=== PATIENT | male | born 1995 | race Caucasian/White ===

== ENCOUNTER 2018-06-14 23:01 | Emergency (ER) | payer SELFPAY ==
[2018-06-14] MEDS ORDERED: Sodium Chloride 0.9% 10 ML Syringe FLUSH PRN (23:18)
[2018-06-14] MEDS ORDERED: Metoclopramide 10 MG/2 ML SDV IVPUSH ONE (23:18)
[2018-06-14] MEDS ORDERED: Famotidine 20 MG Tab PO ONE (23:18)
[2018-06-14] MEDS ORDERED: Famotidine 20 MG/2 ML SDV IVPUSH ONE ×2 (23:24)
--- NOTE | 2018-06-14 23:25 | EDM.PDOC ---
ED HPI GENERAL MEDICAL PROBLEM - General Chief Complaint: Neurological Problem Stated Complaint: [facility] Time Seen by Provider: 06/14/18 23:08 Source of Information: Reports: Patient, EMS, Family (Mother and girlfriend), RN Notes Reviewed - History of Present Illness INITIAL COMMENTS - FREE TEXT/NARRATIVE: 23-year-old male has been brought in by [facility] after having suffered apparent seizure. History is fairly limited at time of my exam. His mother is present but he apparently has been living with his girlfriend at a different residence. He gone to the bathroom, nauseated, may have vomited and that is reported to a passed out but also to of had some brief generalized seizure activity. Ambulance was called. Upon their arrival he was drowsy, nauseated, transported here without further incident. He was noted to have quite a few abrasions to his back. He was starting to wake up at time of my exam , has mid and lower back discomfort. He states he also has headache. He still feels nauseated. He does not remember at all what happened. No chest pain or difficulty breathing at this time. - Related Data Allergies Allergy/AdvReac Type Severity Reaction Status Date / Time CATS Allergy Difficulty Uncoded 06/14/18 23:17 Breathing Home Meds: Home Meds Ondansetron [Zofran ODT] 4 mg PO Q8HR PRN #7 tab.dis 06/15/18 [Rx] Past Medical History Gastrointestinal History: Reports: Other (See Below) Other Gastrointestinal History: ULCERATIVE COLITIS - Past Surgical History GI Surgical History: Reports: Colonoscopy ED ROS GENERAL - Review of Systems Review Of Systems: See Below Constitutional: Denies: Fever HEENT: Denies: Throat Pain Respiratory: Denies: Shortness of Breath Cardiovascular: Denies: Chest Pain GI/Abdominal: Reports: Abdominal Pain, Nausea, Vomiting Musculoskeletal: Reports: Back Pain Skin: Reports: Other (He has abrasions to his mid and low back) Neurological: Reports: Headache, Weakness (Generalized). Denies: Trouble Speaking ED EXAM, NEURO - Physical Exam Exam: See Below General Appearance: Other (Patient is drowsy but arousable, he is answering simple questions appropriately. He seems surprised to be here in the ED. As noted he does not remember what happened.) Ears: Normal External Exam Nose: Normal Inspection Throat/Mouth: Other (Oral mucosa is moist, is have a small abrasion right dorsal aspect of tongue, no active bleeding) Head Exam: Atraumatic. No: Facial Swelling Neck: Supple. No: Tender Midline Respiratory/Chest: No Respiratory Distress, Lungs Clear. No: Rhonchi, Wheezing Cardiovascular: Regular Rate, Rhythm GI/Abdominal: Soft, Tender. No: Guarding, Rebound (Mild tenderness upper mid abdomen, lower abdomen soft and nontender) Neurological: Other (Moderately drowsy, he does awaken, makes eye contact, answering simple questions appropriately) Back Exam: Other (He does have multiple abrasions of the mid and lower back). No: CVA Tenderness (L), CVA Tenderness (R), Paraspinal Tenderness, Vertebral Tenderness Extremities: Normal Inspection, Normal Range of Motion Skin Exam: Warm, Dry, Pallor ED NEURO PROCEDURES - Lumbar Puncture Indication: Headache, Mental Status Change Consent Obtained: Other (girlfriend) Position: Lateral Decubitus Prep: Sterile Drapes, Betadine, Chlorhexidine Local Anesthesia - Lidocaine (Xylocaine): 1% Plain Local Anesthetic Volume: 2cc Vertebral Interspace: L3/L4 Spinal Needle With Stylet: 22ga, 3.5 Inch (Adult) Number of Attempts: 1 Fluid Appearance: Clear Tubes Obtained: 4 Total Fluid Amount: Other (about 6 cc) Complications: No Sterile Dressing: Adhesive Dressing Course - Vital Signs Last Recorded V/S: Last Vital Signs Temp 96.8 F 06/14/18 23:05 Pulse 100 06/15/18 08:50 Resp 18 06/15/18 08:50 BP 125/49 L 06/15/18 08:50 Pulse Ox 97 06/15/18 08:50 - Orders/Labs/Meds Orders: Active Orders 24 hr Category Date Time Status Peripheral IV Care [RC] . DIRECTED Care 06/14/18 23:19 Active CULTURE CSF + SMEAR [RM] Stat Lab 06/15/18 01:58 Results Peripheral IV Insertion Adult [OM.PC] Stat Oth 06/14/18 23:18 Ordered Labs: Laboratory Tests 06/14/18 06/14/18 06/15/18 Range/Units 23:45 23:45 01:58 WBC 22.85 H (4.23-9.07) K/mm3 RBC 4.85 (4.63-6.08) M/mm3 Hgb 13.7 (13.7-17.5) gm/L Hct 43.2 (40.1-51.0) % MCV 89.1 (79.0-92.2) fl MCH 28.2 (25.7-32.2) pg MCHC 31.7 L (32.2-35.5) g/dl RDW Std Deviation 41.7 (35.1-43.9) fL Plt Count 373 H (163-337) K/mm3 MPV 9.9 (9.4-12.3) fl Neut % (Auto) 89.5 H (34.0-67.9) % Lymph % (Auto) 5.5 L (21.8-53.1) % [place] % (Auto) 2.7 L (5.3-12.2) % Eos % (Auto) 1.4 (0.8-7.0) Baso % (Auto) 0.2 (0.1-1.2) % Neut # (Auto) 20.44 H (1.78-5.38) K/mm3 Lymph # (Auto) 1.26 L (1.32-3.57) K/mm3 [place] # (Auto) 0.62 (0.30-0.82) K/mm3 Eos # (Auto) 0.33 (0.04-0.54) K/mm3 Baso # (Auto) 0.04 (0.01-0.08) K/mm3 Manual Slide Review Abnormal smear Sodium 136 (136-145) mEq/L Potassium 4.5 (3.5-5.1) mEq/L Chloride 101 (98-107) mEq/L Carbon Dioxide 20 L (21-32) mEq/L Anion Gap 19.5 H (5-15) BUN 10 (7-18) mg/dL Creatinine 1.2 (0.7-1.3) mg/dL Est Cr Clr Drug Dosing 71.24 mL/min Estimated GFR (MDRD) > 60 (>60) mL/min BUN/Creatinine Ratio 8.3 L (14-18) Glucose 211 H (74-106) mg/dL Calcium 9.2 (8.5-10.1) mg/dL Total Bilirubin 0.8 (0.2-1.0) mg/dL AST 20 (15-37) U/L ALT 22 (16-63) U/L Alkaline Phosphatase 100 (46-116) U/L Total Protein 8.3 H (6.4-8.2) g/dl Albumin 3.9 (3.4-5.0) g/dl Globulin 4.4 gm/dL Albumin/Globulin Ratio 0.9 L (1-2) Urine Color (Yellow) Urine Appearance (Clear) Urine pH (5.0-8.0) Ur Specific [place] (1.005-1.030) Urine Protein (Negative) Urine Glucose (UA) (Negative) Urine Ketones (Negative) Urine Occult Blood (Negative) Urine Nitrite (Negative) Urine Bilirubin (Negative) Urine Urobilinogen (0.2-1.0) Ur Leukocyte Esterase (Negative) Urine RBC (0-5) /hpf Urine WBC (0-5) /hpf Ur Epithelial Cells (0-5) /hpf Urine Bacteria (FEW) /hpf Urine Mucus (FEW) /hpf CSF Volume (2) ml CSF Color (2) CSF Supernat Color (2) CSF Appearance (2) (CLEAR) CSF WBC (2) (0.000-0.008) 10*3/uL CSF RBC (2) (0-0.010) /mm*3 CSF Neutrophils (2) (0-5) CSF Lymphocytes (2) (0-8) CSF Other Cells (2) (0-5) CSF Diff Comment (2) CSF Glucose 79.0 H (40-70) mg/dl CSF Total Protein (15-45) mg/dl Urine Opiates Screen (JLNMIA=923) Ur Buprenorphine Scrn (CUTOFF=10) Ur Oxycodone Screen (LTH9HT=630) Urine Methadone Screen (GOT6CX=767) Ur Propoxyphene Screen (MQIGJO=822) Ur Barbiturates Screen (PAPKBP=263) Ur Tricyclics Screen (HQZLYT=595) Ur Phencyclidine Scrn (CUTOFF=25) Ur Amphetamine Screen (LLADQI=849) U Methamphetamines Scrn (DCIMMS=821) U Benzodiazepines Scrn (RUGEPX=867) U Cocaine Metab Screen (ZVKEJU=767) U Marijuana (THC) Screen (CUTOFF=50) 06/15/18 06/15/18 06/15/18 Range/Units 01:58 01:58 05:58 WBC (4.23-9.07) K/mm3 RBC (4.63-6.08) M/mm3 Hgb (13.7-17.5) gm/L Hct (40.1-51.0) % MCV (79.0-92.2) fl MCH (25.7-32.2) pg MCHC (32.2-35.5) g/dl RDW Std Deviation (35.1-43.9) fL Plt Count (163-337) K/mm3 MPV (9.4-12.3) fl Neut % (Auto) (34.0-67.9) % Lymph % (Auto) (21.8-53.1) % [place] % (Auto) (5.3-12.2) % Eos % (Auto) (0.8-7.0) Baso % (Auto) (0.1-1.2) % Neut # (Auto) (1.78-5.38) K/mm3 Lymph # (Auto) (1.32-3.57) K/mm3 [place] # (Auto) (0.30-0.82) K/mm3 Eos # (Auto) (0.04-0.54) K/mm3 Baso # (Auto) (0.01-0.08) K/mm3 Manual Slide Review Sodium (136-145) mEq/L Potassium (3.5-5.1) mEq/L Chloride (98-107) mEq/L Carbon Dioxide (21-32) mEq/L Anion Gap (5-15) BUN (7-18) mg/dL Creatinine (0.7-1.3) mg/dL Est Cr Clr Drug Dosing mL/min Estimated GFR (MDRD) (>60) mL/min BUN/Creatinine Ratio (14-18) Glucose (74-106) mg/dL Calcium (8.5-10.1) mg/dL Total Bilirubin (0.2-1.0) mg/dL AST (15-37) U/L ALT (16-63) U/L Alkaline Phosphatase (46-116) U/L Total Protein (6.4-8.2) g/dl Albumin (3.4-5.0) g/dl Globulin gm/dL Albumin/Globulin Ratio (1-2) Urine Color (Yellow) Urine Appearance (Clear) Urine pH (5.0-8.0) Ur Specific [place] (1.005-1.030) Urine Protein (Negative) Urine Glucose (UA) (Negative) Urine Ketones (Negative) Urine Occult Blood (Negative) Urine Nitrite (Negative) Urine Bilirubin (Negative) Urine Urobilinogen (0.2-1.0) Ur Leukocyte Esterase (Negative) Urine RBC (0-5) /hpf Urine WBC (0-5) /hpf Ur Epithelial Cells (0-5) /hpf Urine Bacteria (FEW) /hpf Urine Mucus (FEW) /hpf CSF Volume (2) 9 ml CSF Color (2) Colorless CSF Supernat Color (2) No xanthochromia CSF Appearance (2) Clear (CLEAR) CSF WBC (2) 0.004 (0.000-0.008) 10*3/uL CSF RBC (2) 66.7 H* (0-0.010) /mm*3 CSF Neutrophils (2) 0.0 (0-5) CSF Lymphocytes (2) 4.0 (0-8) CSF Other Cells (2) 2.0 (0-5) CSF Diff Comment (2) See note CSF Glucose (40-70) mg/dl CSF Total Protein 28.6 (15-45) mg/dl Urine Opiates Screen Negative (PHXEZU=546) Ur Buprenorphine Scrn Negative (CUTOFF=10) Ur Oxycodone Screen Negative (COM3ZL=824) Urine Methadone Screen Negative (BMG8UO=556) Ur Propoxyphene Screen Negative (VWQNUJ=957) Ur Barbiturates Screen Negative (VKOBVE=164) Ur Tricyclics Screen Negative (VPKXYG=720) Ur Phencyclidine Scrn Negative (CUTOFF=25) Ur Amphetamine Screen Negative (PNNHPL=558) U Methamphetamines Scrn Negative (SVVYJP=378) U Benzodiazepines Scrn Negative (VYKGER=622) U Cocaine Metab Screen Negative (RUOAOH=242) U Marijuana (THC) Screen Presumptive positive H (CUTOFF=50) 06/15/18 Range/Units Unknown WBC (4.23-9.07) K/mm3 RBC (4.63-6.08) M/mm3 Hgb (13.7-17.5) gm/L Hct (40.1-51.0) % MCV (79.0-92.2) fl MCH (25.7-32.2) pg MCHC (32.2-35.5) g/dl RDW Std Deviation (35.1-43.9) fL Plt Count (163-337) K/mm3 MPV (9.4-12.3) fl Neut % (Auto) (34.0-67.9) % Lymph % (Auto) (21.8-53.1) % [place] % (Auto) (5.3-12.2) % Eos % (Auto) (0.8-7.0) Baso % (Auto) (0.1-1.2) % Neut # (Auto) (1.78-5.38) K/mm3 Lymph # (Auto) (1.32-3.57) K/mm3 [place] # (Auto) (0.30-0.82) K/mm3 Eos # (Auto) (0.04-0.54) K/mm3 Baso # (Auto) (0.01-0.08) K/mm3 Manual Slide Review Sodium (136-145) mEq/L Potassium (3.5-5.1) mEq/L Chloride (98-107) mEq/L Carbon Dioxide (21-32) mEq/L Anion Gap (5-15) BUN (7-18) mg/dL Creatinine (0.7-1.3) mg/dL Est Cr Clr Drug Dosing mL/min Estimated GFR (MDRD) (>60) mL/min BUN/Creatinine Ratio (14-18) Glucose (74-106) mg/dL Calcium (8.5-10.1) mg/dL Total Bilirubin (0.2-1.0) mg/dL AST (15-37) U/L ALT (16-63) U/L Alkaline Phosphatase (46-116) U/L Total Protein (6.4-8.2) g/dl Albumin (3.4-5.0) g/dl Globulin gm/dL Albumin/Globulin Ratio (1-2) Urine Color Yellow (Yellow) Urine Appearance Clear (Clear) Urine pH 6.0 (5.0-8.0) Ur Specific [place] 1.020 (1.005-1.030) Urine Protein 1+ H (Negative) Urine Glucose (UA) Negative (Negative) Urine Ketones 2+ H (Negative) Urine Occult Blood Trace-intact H (Negative) Urine Nitrite Negative (Negative) Urine Bilirubin Negative (Negative) Urine Urobilinogen 0.2 (0.2-1.0) Ur Leukocyte Esterase Negative (Negative) Urine RBC 0-5 (0-5) /hpf Urine WBC 0-5 (0-5) /hpf Ur Epithelial Cells 0-5 (0-5) /hpf Urine Bacteria Few (FEW) /hpf Urine Mucus Few (FEW) /hpf CSF Volume (2) ml CSF Color (2) CSF Supernat Color (2) CSF Appearance (2) (CLEAR) CSF WBC (2) (0.000-0.008) 10*3/uL CSF RBC (2) (0-0.010) /mm*3 CSF Neutrophils (2) (0-5) CSF Lymphocytes (2) (0-8) CSF Other Cells (2) (0-5) CSF Diff Comment (2) CSF Glucose (40-70) mg/dl CSF Total Protein (15-45) mg/dl Urine Opiates Screen (WZWAZC=008) Ur Buprenorphine Scrn (CUTOFF=10) Ur Oxycodone Screen (UOU3BD=060) Urine Methadone Screen (LZG7PV=881) Ur Propoxyphene Screen (ZGYJAJ=948) Ur Barbiturates Screen (YIZAAM=011) Ur Tricyclics Screen (AIWLCR=228) Ur Phencyclidine Scrn (CUTOFF=25) Ur Amphetamine Screen (PHUCFA=627) U Methamphetamines Scrn (EVCXCQ=118) U Benzodiazepines Scrn (OINYLT=795) U Cocaine Metab Screen (SJWSBS=072) U Marijuana (THC) Screen (CUTOFF=50) Meds: Medications Discontinued Medications Generic Name Dose Route Start Last Admin Trade Name Freq PRN Reason Stop Dose Admin Famotidine 20 mg 06/14/18 23:24 06/14/18 23:25 Pepcid IVPUSH 06/14/18 23:25 Not Given ONETIME ONE Famotidine 20 mg 06/14/18 23:24 06/14/18 23:32 Pepcid IVPUSH 06/14/18 23:25 20 mg ONETIME ONE Administration Haloperidol Lactate 5 mg 06/15/18 07:06 06/15/18 07:17 Haldol IVPUSH 06/15/18 07:07 5 mg ONETIME ONE Administration Hydromorphone HCl 1 mg 06/15/18 07:08 06/15/18 07:20 Dilaudid IVPUSH 06/15/18 07:09 1 mg ONETIME ONE Administration Sodium Chloride 1,000 mls @ 999 mls/hr 06/14/18 23:30 06/14/18 23:33 Normal Saline IV 999 mls/hr ONETIME LUDIVINA Administration Sodium Chloride 1,000 mls @ 999 mls/hr 06/15/18 01:00 06/15/18 01:19 Normal Saline IV 999 mls/hr ONETIME LUDIVINA Administration Ceftriaxone Sodium 2 gm/ 100 mls @ 200 mls/hr 06/15/18 01:40 Sodium Chloride IV 06/15/18 02:09 ONETIME ONE Ceftriaxone Sodium 2 gm/ 100 mls @ 200 mls/hr 06/15/18 02:08 06/15/18 02:14 Sodium Chloride IV 06/15/18 02:37 200 mls/hr ONETIME ONE Administration Sodium Chloride 1,000 mls @ 999 mls/hr 06/15/18 04:30 06/15/18 04:31 Normal Saline IV 999 mls/hr ONETIME LUDIVINA Administration Ketorolac Tromethamine 30 mg 06/14/18 23:45 06/14/18 23:50 Toradol IVPUSH 30 mg ONETIME LUDIVINA Administration Ketorolac Tromethamine Confirm 06/14/18 23:49 06/14/18 23:52 Toradol Administered 06/14/18 23:50 Not Given Dose 30 mg .ROUTE .STK-MED ONE Lorazepam 0.5 mg 06/14/18 23:31 06/14/18 23:37 Ativan IVPUSH 06/14/18 23:32 0.5 mg ONETIME ONE Administration Metoclopramide HCl 5 mg 06/14/18 23:18 06/14/18 23:31 Reglan IVPUSH 06/14/18 23:19 5 mg ONETIME ONE Administration Metoclopramide HCl 5 mg 06/15/18 07:10 06/15/18 07:44 Reglan IVPUSH 06/15/18 07:11 5 mg ONETIME ONE Administration Ondansetron HCl 4 mg 06/15/18 01:10 06/15/18 01:21 Zofran IVPUSH 06/15/18 01:11 4 mg ONETIME ONE Administration Ondansetron HCl 4 mg 06/15/18 07:06 06/15/18 07:14 Zofran IVPUSH 06/15/18 07:07 4 mg ONETIME ONE Administration Sodium Chloride 10 ml 06/14/18 23:18 06/14/18 23:36 Saline Flush FLUSH 10 ml ASDIRECTED PRN Administration Keep Vein Open - Re-Assessments/Exams Free Text/Narrative Re-Assessment/Exam: 06/14/18 23:35. I do have more information from girlfriend. She states that he started feeling ill yesterday with possible fever, chills, body aches nausea, decreased appetite. He has had headache today and also has been coughing. He apparently had gone to the bathroom to vomit and then was found having generalized seizure activity which may have lasted up to 2 or 3 minutes in duration. He did have possible influenza exposure about a week or 2 ago. 06/15/18 00:50. Influenza screen has come back neg. chest x-ray normal. Patient continues with altered mental status. He is arousable, does make eye contact when spoken to but continues to not show normal or expected alertness. Initially this was thought to be postictal status post seizure but now after an hour and 45 minutes I would expect mental status should be returning to normal. Head CT has been ordered. Labs show that he is moderately dehydrated. He was given 1 L of fluid, second liter has been ordered. He continues to complain of headache. He does deny neck pain. His neck is supple, he does not have nuchal rigidity. His girlfriend had initially denied drug usage but did tell one of our nurses a short time ago that he does use marijuana at least on occasion but last usage stated by her to have been a couple of weeks ago. 06/15/18 01:38. Head CT normal, with sx of continued altered mental status, Warner , N/V, elevated WBC believe that spinal tap is indicated, girlfriend, mother consent to that after risks/benefits discussed. Have also order 2 grams rocephin IV. 06/15/18 04:26. Has been sleeping, resting more comfortably. Still waiting for gram stain, final cell counts. Still has not voided, will infuse 1 further liter NS. 06/15/18 07:13. Decided to keep him for the rest of the night, give him more time for recovery. He now was up to the bathroom just a short time ago, finally voided. He feels better but still does have moderately severe headache and did have some dry heaves again after walking to and from the bathroom. The meds we gave 7 hours ago have worn off. I'll repeat Zofran and also give Haldol 5 mg IV. , wait 20 minutes and give a dose of 5 mg Reglan IV. We will give Dilaudid 0.5 mg now, repeat 0.5 mg in 30-60 minutes if needed. He does want to go home. Neuro status now showing tremendous improvement from the altered mental status he presented with last evening. Now speech much more spontaneous, appropriate, still does not remember event of last evening. He likely does have concussion from hitting head from fall, Discharge instructions as documented. Departure - Departure Time of Disposition: 07:45 Disposition: Home, Self-Care 01 Condition: Fair Clinical Impression: Seizure, Dehydration Altered mental status Qualifiers: Altered mental status type: disorientation Qualified Code(s): R41.0 - Disorientation, unspecified Headache Qualifiers: Headache type: unspecified Headache chronicity pattern: acute headache - Discharge Information Prescriptions: Ondansetron [Zofran ODT] 4 mg PO Q8HR PRN #7 tab.dis PRN Reason: Nausea/Vomiting Instructions: Dehydration, Adult, [id number], Seizure, Adult Referrals: PCP,None [Primary Care Provider] - Forms: ED Department Discharge, ED Return to Work/School Form Additional Instructions: Rest, clear liquids until nausea vomiting has completely resolved, Zofran if needed for further nausea or vomiting. He may take Tylenol if needed for further headache. Clinic if not much better by tomorrow, return to ED as needed if symptoms worsening in any way. - My Orders Last 24 Hours: My Active Orders 06/14/18 23:18 Peripheral IV Insertion Adult [OM.PC] Stat 06/14/18 23:19 Peripheral IV Care [RC] . DIRECTED 06/15/18 01:58 CULTURE CSF + SMEAR [RM] Stat - Assessment/Plan Last 24 Hours: My Active Orders 06/14/18 23:18 Peripheral IV Insertion Adult [OM.PC] Stat 06/14/18 23:19 Peripheral IV Care [RC] . DIRECTED 06/15/18 01:58 CULTURE CSF + SMEAR [RM] Stat
[2018-06-14] MEDS ORDERED: Sodium Chloride 0.9% 1,000 ML IV SCH (23:30)
[2018-06-14] MEDS ORDERED: LORazepam 2 MG/ML SDV IVPUSH ONE (23:31)
[2018-06-14] MEDS ORDERED: Ketorolac 30 MG/ML SDV IVPUSH SCH (23:45)
[2018-06-14] MEDS ORDERED: Ketorolac 30 MG/ML SDV ONE (23:49)
[2018-06-15] MEDS ORDERED: Sodium Chloride 0.9% 1,000 ML IV SCH ×2 (01:00→04:30)
[2018-06-15] MEDS ORDERED: Ondansetron 4 MG/2 ML SDV IVPUSH ONE ×2 (01:10→07:06)
[2018-06-15] MEDS ORDERED: cefTRIAXone 2 GM in Sodium Chloride 0.9% 100 ML IV ONE ×2 (01:40→02:08)
[2018-06-15] MEDS ORDERED: Haloperidol Lactate 5 MG/ML SDV IVPUSH ONE (07:06)
[2018-06-15] MEDS ORDERED: HYDROmorphone 1 MG/ML Syringe IVPUSH ONE (07:08)
[2018-06-15] MEDS ORDERED: Metoclopramide 10 MG/2 ML SDV IVPUSH ONE (07:10)
--- NOTE | 2018-06-15 07:46 | CR ---
Chest: Portable view of the chest was obtained. Comparison: No prior chest x-ray. Heart size and mediastinum are normal. Lungs are clear. Bony structures are unremarkable. Impression: 1. Nothing acute is seen on portable chest x-ray. Diagnostic code #1
--- NOTE | 2018-06-15 07:46 | CT ---
Head CT Technique: Multiple axial sections through the brain were obtained. Intravenous contrast was not utilized. Comparison: No prior intracranial imaging. Findings: Ventricles along with basal cisterns and sulci over the convexities are within normal limits for the patient's age. No abnormal parenchymal densities are seen. No evidence of intracranial hemorrhage. No midline shift or mass effect is seen. Bone window settings were reviewed which show mild mucosal thickening within the ethmoid sinuses. No acute calvarial abnormality is seen. Impression: 1. Sinus findings which are felt to be incidental. 2. Nothing acute is appreciated on noncontrast head CT exam. Diagnostic code #2 I agree with preliminary report from [facility], finalized on 06/15/18, 3:01 AM Central Time
[2018-06-15 09:16] VITALS: BP 125/49
== END 2018-06-15 09:00 | disposition home or self-care (01) ==
LOC: JD.ED 23:01
DX: R56.9 Unspecified convulsions (principal); E86.0 Dehydration; R41.82 Altered mental status, unspecified; R51 Headache; Z91.09 Other allergy status, other than to drugs and biological substances
CPT/HCPCS: 36415; 62272; 70450; 71045; 80053; 80306; 81001; 82945; 84157; 85025; 87070; 87205; 87804; 89050; 96361; 96365; 96375; 96376; 99285; J0696; J1170; J1630; J1885; J2060; J2405; J2765; J3490; J7030; J7040; 99284

== ENCOUNTER 2019-01-15 09:21 | Emergency (ER) | payer OTHER ==
[2019-01-15 09:31] VITALS: BP 120/76; PULSE 88
--- NOTE | 2019-01-15 10:04 | EDM.PDOC ---
ED HPI GENERAL MEDICAL PROBLEM - General Chief Complaint: Upper Extremity Injury/Pain Stated Complaint: LT PINKY AND RING FINGER INJURY Time Seen by Provider: 01/15/19 10:03 - History of Present Illness INITIAL COMMENTS - FREE TEXT/NARRATIVE: 23-year-old male presents emergency room with an injury to his left ring and pinky fingers. 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 This connected the distal tips of the fourth and fifth finger together. Patient denies any other injury associated with this. This occurred around 9:30 this morning. Patient is uncertain of his last tetanus shot. Left Hand Pain Score (Numeric/FACES): 6 - Related Data Allergies Allergy/AdvReac Type Severity Reaction Status Date / Time CATS Allergy Difficulty Uncoded 01/15/19 09:28 Breathing Home Meds: Home Meds Cephalexin [Keflex] 500 mg PO Q6H #27 capsule 01/15/19 [Rx] Past Medical History - Past Health History Medical/Surgical History: Denies Medical/Surgical History Gastrointestinal History: Reports: Other (See Below) Other Gastrointestinal History: ULCERATIVE COLITIS Neurological History: Reports: Seizure - Past Surgical History HEENT Surgical History: Reports: Polypectomy GI Surgical History: Reports: Colonoscopy Social & Family History - Family History Family Medical History: Noncontributory - Tobacco Use Smoking Status *Q: Never Smoker - Caffeine Use Caffeine Use: Reports: None Review of Systems - Review of Systems Review Of Systems: See Below Constitutional: Reports: No Symptoms Respiratory: Reports: No Symptoms Cardiovascular: Reports: No Symptoms GI/Abdominal: Reports: No Symptoms ED EXAM, GENERAL - Physical Exam Exam: See Below Exam Limited By: No Limitations General Appearance: Alert, No Apparent Distress Respiratory/Chest: No Respiratory Distress, Lungs Clear, Normal Breath Sounds Cardiovascular: Regular Rate, Rhythm, No Edema, No Murmur Back Exam: Other (Examination of his left hand shows a industrial glove his hand he has a large staple connecting the distal ends of the fourth and fifth fingers together. Exam done after the glove is dissected away normal neurologic status a very small piece of the ring finger was caught by the staple and this finger was removed from the staple the fifth finger may have some bony involvement as it went through the nail but I'm optimistic that it does not we will not remove this until x-rays are reviewed.) Course - Vital Signs Last Recorded V/S: Last Vital Signs Temp 36.7 C 01/15/19 09:29 Pulse 88 01/15/19 09:29 Resp 18 01/15/19 09:29 BP 120/76 01/15/19 09:29 Pulse Ox 100 01/15/19 09:29 - Orders/Labs/Meds Orders: Active Orders 24 hr Category Date Time Status Vaccines to be Administered [RC] PER UNIT ROUTINE Care 01/15/19 10:25 Active Fingers Fifth Digit Lt F4 [CR] Stat Exams 01/15/19 10:26 Taken Fingers Fourth Digit Lt F3 [CR] Stat Exams 01/15/19 10:26 Taken Meds: Medications Discontinued Medications Generic Name Dose Route Start Last Admin Trade Name Willie PRN Reason Stop Dose Admin Diphtheria/Tetanus/Acell Pertussis 0.5 ml 01/15/19 10:25 01/15/19 10:49 Adacel IM 01/15/19 10:26 0.5 ml .ONCE ONE Administration Diphtheria/Tetanus/Acell Pertussis Confirm 01/15/19 10:46 Adacel Administered 01/15/19 10:47 Dose 0.5 ml .ROUTE .STK-MED ONE Lidocaine HCl 10 ml 01/15/19 10:26 01/15/19 10:50 Xylocaine 1% INJECT 01/15/19 10:27 10 ml ONETIME ONE Administration - Re-Assessments/Exams Free Text/Narrative Re-Assessment/Exam: 01/15/19 10:35 The glove is dissected away from the fingers and then carefully dissected away from the staple and removed the stapled fifth finger and freed up fourth finger now soaking in Hibiclens solution awaiting x-ray 01/15/19 11:28 X-rays show no evidence of bony involvement the patient's fifth finger was anesthetized using 2 mL of lidocaine without epinephrine the staple was secured at the top with side cutters and easily withdrawn without difficulty. The patient soaked his fingers for another 10-15 minutes. We'll apply Band-Aids now we will give him a dose of Keflex and a prescription to get filled here today. Departure - Departure Time of Disposition: 11:32 Disposition: Home, Self-Care 01 Clinical Impression: Puncture wound of finger of left hand - Discharge Information Prescriptions: Cephalexin [Keflex] 500 mg PO Q6H #27 capsule Referrals: PCP,None [Primary Care Provider] - Forms: ED Department Discharge Additional Instructions: Return to the emergency room with any questions problems or worsening pain. Return with any signs of infection redness swelling or drainage. Follow-up in the hospital clinic early next week for recheck. [id number] take the antibiotics as directed. Try and keep your hand elevated while resting. Take the antibiotics as directed and until all gone. Motrin or Tylenol as needed for pain - My Orders Last 24 Hours: My Active Orders 01/15/19 10:25 Vaccines to be Administered [RC] PER UNIT ROUTINE 01/15/19 10:26 Fingers Fifth Digit Lt F4 [CR] Stat Fingers Fourth Digit Lt F3 [CR] Stat - Assessment/Plan Last 24 Hours: My Active Orders 01/15/19 10:25 Vaccines to be Administered [RC] PER UNIT ROUTINE 01/15/19 10:26 Fingers Fifth Digit Lt F4 [CR] Stat Fingers Fourth Digit Lt F3 [CR] Stat
[2019-01-15] MEDS ORDERED: Diphtheria,Pertussis(Acell),Tetanus Vaccine 0.5 ML SDV IM ONE (10:25)
[2019-01-15] MEDS ORDERED: Lidocaine 1% 10 ML MDV INJECT ONE (10:26)
[2019-01-15] MEDS ORDERED: Diphtheria,Pertussis(Acell),Tetanus Vaccine 0.5 ML Syringe ONE (10:46)
[2019-01-15] MEDS ORDERED: Cephalexin 500 MG Cap PO ONE (11:30)
--- NOTE | 2019-01-18 09:24 | CR ---
Left 5th finger: Four views of the left 5th finger were obtained. Large metallic staple is seen within the distal left 5th finger involving the soft tissues. No bony fracture is seen. Impression: 1. Metallic foreign body within the soft tissues. 2. No acute bony abnormality is seen. Diagnostic code #3
--- NOTE | 2019-01-18 09:24 | CR ---
Left 4th finger: Four views centered to the left 4th finger were obtained. No radiopaque foreign object is seen. No fracture, dislocation or other bony abnormality is seen. Impression: 1. No abnormality is identified on left 4th finger study. Diagnostic code #1
== END 2019-01-15 11:44 | disposition home or self-care (01) ==
LOC: JD.ED 09:21
DX: S61.235A Puncture wound without foreign body of left ring finger without damage to nail, initial encounter (principal); S61.237A Puncture wound without foreign body of left little finger without damage to nail, initial encounter; Z23 Encounter for immunization; Z91.09 Other allergy status, other than to drugs and biological substances; W26.8XXA Contact with other sharp object(s), not elsewhere classified, initial encounter
CPT/HCPCS: 73140; 90471; 90715; 99283; A9270; J2001; 20520

== ENCOUNTER 2019-01-18 15:12 | Emergency (ER) | payer OTHER ==
[2019-01-18 15:26] VITALS: BP 115/83; PULSE 64
--- NOTE | 2019-01-18 15:46 | EDM.PDOC ---
ED HPI GENERAL MEDICAL PROBLEM - General Chief Complaint: Eye Problems Stated Complaint: LOSS OF VISION EVERY 5 MINUTES Time Seen by Provider: 01/18/19 15:46 Source of Information: Reports: Patient History Limitations: Reports: No Limitations - History of Present Illness INITIAL COMMENTS - FREE TEXT/NARRATIVE: patient is a 23-year-old male who presents the ED complaining of intermittent tunnellike vision that would come and go with no known provocation. Patient states he's had these symptoms for approx 6 or 7 years. States normally the symptoms would come about with body position changes such as standing from a seated position. Symptoms would only last for a few seconds resolve on its own accord. He states since Friday he has been experiencing these intermittent episodes even with just sitting. He does not lose vision completely. He does not feel dizzy nor complains of any complete vision loss, neck pain, nausea vomiting, palpitations, chest pain, or shortness of breath. He does not get the sensation that he is going to pass out. states he's been well hydrated. Has been eating with no issues. Does carry a history of ulcerative colitis since with no recent outbreaks or recent med changes. He denies any recent alcohol use or drug use. States this past Friday he accidentally stapled his fingers and had to have it removed in the ED and received a tetanus shot. Denies being overly anxious or stressed out. - Related Data Allergies Allergy/AdvReac Type Severity Reaction Status Date / Time CATS Allergy Difficulty Uncoded 01/18/19 15:26 Breathing Home Meds: Home Meds Mercaptopurine [Purixan] 75 mg PO DAILY 01/18/19 [History] Past Medical History - Past Health History Medical/Surgical History: Denies Medical/Surgical History Gastrointestinal History: Reports: Other (See Below) Other Gastrointestinal History: ULCERATIVE COLITIS Neurological History: Reports: Seizure - Past Surgical History HEENT Surgical History: Reports: Polypectomy GI Surgical History: Reports: Colonoscopy Social & Family History - Family History Family Medical History: Noncontributory - Tobacco Use Smoking Status *Q: Never Smoker - Caffeine Use Caffeine Use: Reports: Coffee, Soda - Recreational Drug Use Recreational Drug Use: No ED ROS GENERAL - Review of Systems Review Of Systems: See Below Constitutional: Denies: Fever, Chills, Malaise, Weakness, Fatigue, Night Sweats , Decreased Appetite HEENT: Reports: No Symptoms, Vision Change (tunnel vision, no complete loss of vision. ) Respiratory: Reports: No Symptoms Cardiovascular: Reports: No Symptoms GI/Abdominal: Reports: No Symptoms Musculoskeletal: Denies: Neck Pain, Back Pain Skin: Reports: No Symptoms Neurological: Reports: No Symptoms Psychiatric: Reports: No Symptoms Hematologic/Lymphatic: Reports: No Symptoms ED EXAM GENERAL W FULL EYE - Physical Exam Exam: See Below Exam Limited By: No Limitations General Appearance: Alert, WD/WN, No Apparent Distress Eye Exam: Bilateral Eye: EOMI, Normal Inspection, Nystagmus (none noted), PERRL , Vision Changes (no vision loss, blurred) Visual Acuity (R) 20/: 20 Visual Acuity (L) 20/: 20 With Correction: No Eyelids: Bilateral: Normal Appearance Conjunctiva & Sclera: Bilateral: Normal Appearance Extraocular Movements: Bilateral: Intact Pupillary Size: Bilateral: 4 mm Pupillary Reaction: Bilateral: Brisk Ears: Normal External Exam, Hearing Grossly Normal Nose: Normal Inspection Throat/Mouth: Normal Inspection, Normal Oropharynx, Normal Voice, No Airway Compromise Head: Atraumatic, Normocephalic Neck: Normal Inspection, Supple, Non-Tender, Full Range of Motion. No: Carotid Bruit Respiratory/Chest: No Respiratory Distress, Lungs Clear, Normal Breath Sounds, No Accessory Muscle Use, Chest Non-Tender Cardiovascular: Normal Peripheral Pulses, Regular Rate, Rhythm, No Murmur, Other (On a director cardiac patient had a regular rhythm. there was no arrhythmias noted when he would have the tunnel vision symptoms. Patients symptoms came on twice during examination and would stop abruptly with no hangover. He had no other symptoms. ) GI/Abdominal: Normal Bowel Sounds, Soft, Non-Tender, No Organomegaly, No Distention Back Exam: Normal Inspection, Full Range of Motion. No: CVA Tenderness (L), CVA Tenderness (R) Extremities: Normal Inspection, Normal Range of Motion, Non-Tender, No Pedal Edema Neurological: Alert, Oriented, CN II-XII Intact, Normal Cognition, Normal Gait, No Motor/Sensory Deficits Psychiatric: Normal Affect, Normal Mood Skin Exam: Warm, Dry, Intact, Normal Color, No Rash Course - Vital Signs Last Recorded V/S: Last Vital Signs Temp 98.4 F 01/18/19 15:22 Pulse 64 01/18/19 15:22 Resp 16 01/18/19 15:22 BP 115/83 01/18/19 15:22 Pulse Ox 100 01/18/19 15:22 Orthostatic Blood Pressure [ 116/67 Standing] Orthostatic Blood Pressure [ 107/70 Sitting] Orthostatic Blood Pressure [ 116/77 Supine] - Orders/Labs/Meds Orders: Active Orders 24 hr Category Date Time Status Holter Monitor 48 Hours [RC] .PRN Care 01/18/19 17:26 Active Orthostatic Vital Signs [RC] ASDIRECTED Care 01/18/19 16:09 Active Labs: Laboratory Tests 01/18/19 01/18/19 Range/Units 16:25 16:25 WBC 6.92 (4.23-9.07) K/mm3 RBC 4.89 (4.63-6.08) M/mm3 Hgb 14.1 (13.7-17.5) gm/L Hct 43.1 (40.1-51.0) % MCV 88.1 (79.0-92.2) fl MCH 28.8 (25.7-32.2) pg MCHC 32.7 (32.2-35.5) g/dl RDW Std Deviation 43.3 (35.1-43.9) fL Plt Count 333 (163-337) K/mm3 MPV 9.7 (9.4-12.3) fl Neutrophils % (Manual) 67 H (40-60) % Band Neutrophils % 0 (0-10) % Lymphocytes % (Manual) 17 L (20-40) % Atypical Lymphs % 0 % Monocytes % (Manual) 9 (2-10) % Eosinophils % (Manual) 7 (0.8-7.0) % Basophils % (Manual) 0 L (0.2-1.2) Platelet Estimate Adequate RBC Morph Comment Normal Sodium 140 (136-145) mEq/L Potassium 4.0 (3.5-5.1) mEq/L Chloride 102 (98-107) mEq/L Carbon Dioxide 27 (21-32) mEq/L Anion Gap 15.0 (5-15) BUN 10 (7-18) mg/dL Creatinine 1.0 (0.7-1.3) mg/dL Est Cr Clr Drug Dosing 86.98 mL/min Estimated GFR (MDRD) > 60 (>60) mL/min BUN/Creatinine Ratio 10.0 L (14-18) Glucose 90 (74-106) mg/dL Calcium 8.4 L (8.5-10.1) mg/dL Total Bilirubin 0.2 (0.2-1.0) mg/dL AST 11 L (15-37) U/L ALT 14 L (16-63) U/L Alkaline Phosphatase 80 (46-116) U/L Total Protein 7.3 (6.4-8.2) g/dl Albumin 3.4 (3.4-5.0) g/dl Globulin 3.9 gm/dL Albumin/Globulin Ratio 0.9 L (1-2) - Re-Assessments/Exams Free Text/Narrative Re-Assessment/Exam: On examination patient's blood pressure is 115/83, heart rate 64, temperature 98.4, respiratory 16, SPO2 100%. Telemetry indicates patients heart rate is regular with no arrhythmias noted. During the examination patient had 2 episodes where the patient states he got tunnelled vision. This lasted for a few seconds and then resolved on its own accord with no residual effects. Again the monitor did not reveal any arrhythmias. He denies any additional complaints with this occurs. Unclear etiology at this point. Patient states been going on for the past 6-7 years with no clear indication why. States there has been no recent illness or trauma to his head/neck. He denies any alcohol or recreational drug use. He has a history of ulcerative colitis and denies any flare up. He is medicated for the ulcerative colitis and notes there has been no medication changes. He offers no additional complaints. There's been no trauma to the neck. His neurological exam is benign. I will go ahead and obtain CBC and chem 14 to ensure his hemoglobin stable and does not have any electrolyte abnormalities. 01/18/19 16:37 Orthostatic vital signs were negative thus ruling out postural orthostatic tachycardia syndrome. Patient had no symptoms during the evaluation. 01/18/19 17:09 CBC and chemistry panel are essentially normal. 1917 Reassessment, patient's vital signs are stable. He's had a few more episodes but states it is short-lived with no residual effects. I will discharge patient home with a 48 hr holter monitor. Patient will followup with a PCP at the [facility] here in [place]. I will refer patient to investigator claims of his choosing for further evaluation. Return precautions were discussed with patient. He had no further questions or concerns and agreed with plan. Departure - Departure Time of Disposition: 17:23 Disposition: Home, Self-Care 01 Condition: Good Clinical Impression: Visual changes - Discharge Information Instructions: Visual Disturbances Referrals: PCP,None [Primary Care Provider] - Forms: ED Department Discharge, ED Return to Work/School Form Additional Instructions: Please return the holter monitor in 48 hrs so that it can be interpreted. Call [facility] tomorrow for appt for reevaluation in 3 to 5 days and for results of Holter Monitor. Call and make an appt to see investigator claims of your choice to be evaluated in the next 3 to 5 days. Please return to the E.D. if you develop any new or worsening symptoms. - My Orders Last 24 Hours: My Active Orders 01/18/19 16:09 Orthostatic Vital Signs [RC] ASDIRECTED 01/18/19 17:26 Holter Monitor 48 Hours [RC] .PRN - Assessment/Plan Last 24 Hours: My Active Orders 01/18/19 16:09 Orthostatic Vital Signs [RC] ASDIRECTED 01/18/19 17:26 Holter Monitor 48 Hours [RC] .PRN
== END 2019-01-18 17:49 | disposition home or self-care (01) ==
LOC: JD.ED 15:12
DX: H53.8 Other visual disturbances (principal); Z88.8 Allergy status to other drugs, medicaments and biological substances; Z79.899 Other long term (current) drug therapy
CPT/HCPCS: 36415; 80053; 85007; 85027; 93225; 93226; 99282; 99284

== ENCOUNTER 2019-09-30 15:14 | Emergency (ER) | payer SELFPAY ==
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
--- NOTE | 2019-09-30 16:14 | CT ---
CT lumbar spine Technique: Multiple axial sections were obtained from the mid T12 level inferiorly through the mid sacrum. Reconstructed sagittal and coronal images were obtained. Findings: Vertebral body heights and disc spaces are maintained. Fracture is noted to the inferior left side of the sacrum. There is a transitional segment at the lumbosacral junction with enlarged transverse process showing pseudoarticulation to the sacrum. No additional sacral fracture is appreciated. No lumbar spine fracture is seen. No traumatic disc herniation is noted. No abnormal subluxation is appreciated. Impression: 1. Fracture within the inferior left side of the sacrum. 2. No additional fracture is noted. 3. No traumatic disc herniation is appreciated. Diagnostic code #3 This report was dictated in MDT
--- NOTE | 2019-09-30 16:22 | CR ---
Pelvis and right hip: AP view of the pelvis was obtained as well as AP and frog-leg lateral views of the right hip. Comparison: No prior pelvis exam. Joint spaces within both hips are maintained. Transitional segment is seen at the lumbosacral junction with pseudoarticulation of the left transverse process to the sacrum. No acute fracture is seen. Impression: 1. Transitional segment at the lumbosacral junction. 2. AP pelvis and 2 view right hip exam is otherwise unremarkable. Note: Left-sided sacral fracture noted on previous CT study is poorly seen on this exam. Diagnostic code #2 This report was dictated in MDT
[2019-09-30 17:03] VITALS: BP 109/72; PULSE 78
== END 2019-09-30 16:55 | disposition home or self-care (01) ==
LOC: JD.ED 15:14
DX: S32.10XA Unspecified fracture of sacrum, initial encounter for closed fracture (principal); V86.59XA Driver of other special all-terrain or other off-road motor vehicle injured in nontraffic accident, initial encounter
CPT/HCPCS: 72131; 72131-26; 73502-26-RT; 73502-RT; 99284-25